=== PATIENT | female | born 1990 | race Caucasian/White ===

== ENCOUNTER 2018-09-19 06:13 | Inpatient (IN) ==
[2018-09-19 08:14] LABS: Baso % (Auto) 0.4 % (0.0-2.0); Eos # (Auto) 0.4 th/mm3 (0.0-0.4); Eos % (Auto) 3.4 % (0.0-4.0); Hematocrit 33.6 % (35.0-46.0); Lymph # (Auto) 2.4 th/mm3 (1.0-4.8); Lymph % (Auto) 23.3 % (9.0-44.0); Mean Corpuscular HGB Conc 35.7 % (32.0-36.0); Mean Corpuscular Volume 89.8 fL (80.0-100.0); Mean Platelet Volume 8.9 fL (7.0-11.0); Mono # (Auto) 0.7 th/mm3 (0.0-0.9); Mono % (Auto) 6.4 % (0.0-8.0); Neut # (Auto) 6.9 th/mm3 (1.8-7.7); Neut % (Auto) 66.5 % (16.0-70.0); Platelet Count 228 th/mm3 (150-450); Red Blood Count 3.74 mil/mm3 (4.00-5.30); Red Cell Distribution Width 13.8 % (11.6-17.2); White Blood Count 10.4 th/mm3 (4.0-11.0)
[2018-09-19 08:22] LABS: Amphetamine Urine With Conf Neg (Neg); Bacteria,Urine Few /hpf; Benzodiazepine Urine With Conf Neg (Neg); Bilirubin,Urine Negative (Negative); Clarity,Urine Hazy (Clear); Color,Urine Yellow (Yellw/Straw); Glucose,Urine (UA) Negative (Negative); Leukocyte Esterase,Urine Large (Negative); Mucus,Urine Few /lpf (Occasional); Nitrite,Urine Negative (Negative); Specific Gravity,Urine 1.006 (1.002-1.035); Squamous Epithelial Cell,Urine 7 /hpf (0-5)
[2018-09-19] MEDS ORDERED: Sod Chloride 0.9% Inj 1,000 ML IV.CONT PRN (08:32)
[2018-09-19] MEDS ORDERED: fentaNYL Citrate Inj 100 MCG/2 ML Ampul IV.PUSH PRN ×2 (08:32)
[2018-09-19] MEDS ORDERED: Naloxone Inj 0.4 MG/ML Vial IV.PUSH PRN ×2 (08:32→13:36)
[2018-09-19] MEDS ORDERED: Sodium Chlor 0.9% Inj 500 ML IV.SIG PRN (08:32)
[2018-09-19] MEDS ORDERED: Citric Acid/Sodium Citrate Liq 30 ML UDC PO SCH (08:45)
[2018-09-19] MEDS ORDERED: Oxytocin 30 Units/500ml Premix 30 UNITS/500 ML BAG IV.SIG ONE ×2 (09:00→13:36)
[2018-09-19] MEDS ORDERED: Oxytocin 30 Units/500ml Premix 30 UNITS/500 ML BAG IV.SIG PRN (11:00)
[2018-09-19] MEDS ORDERED: fentaNYL 2MCG-Bupiv 0.125% Epi 150 ML EPIDURAL ONE (11:04)
[2018-09-19] MEDS ORDERED: Lidocaine PF 1.5% Inj 20 ML Ampule ONE (11:07)
[2018-09-19] MEDS ORDERED: fentaNYL 2MCG-Bupiv 0.125% Epi 150 ML EPIDURAL PRN (12:36)
[2018-09-19] MEDS ORDERED: fentaNYL Citrate Inj 100 MCG/2 ML Ampul EPIDURAL ONE (12:36)
[2018-09-19] MEDS ORDERED: Zolpidem Tartrate 5 MG Tablet PO PRN (13:36)
[2018-09-19] MEDS ORDERED: Witch Hazel 50%/Glyderin 12.5% 40 Pad Jar RECTAL PRN (13:36)
[2018-09-19] MEDS ORDERED: Benzocaine 20% Top Spray 60 ML Can TOPICAL PRN (13:36)
[2018-09-19] MEDS ORDERED: Bisacodyl 10 MG Supp RECTAL PRN (13:36)
[2018-09-19] MEDS ORDERED: Oxytocin 30 Units/500ml Premix 30 UNITS/500 ML BAG IV.CONT PRN (13:36)
--- NOTE | 2018-09-19 13:46 | P.OBDELI ---
Weeks Gestation: 39 Active Labor Start Date: 09/19/18 Medical Induction of Labor: Yes Medical Induction Start Date: 09/19/18 Artificial Rupture of Membrane: Yes Anesthesia: Epidural Episiotomy: none Vaginal Delivery: Normal Presentation: Occiput anterior Nuchal Cord: None Delayed Cord Clamping (45 sec): Yes Placenta: Spontaneous delivery, Intact, 3 vessel cord Laceration: 1 deg Repair: Vicryl running : Female Infant Female A Delivery Date: 09/19/18 Weight: 3.43 kg score (1 min): 7 score (5 min): 9 Additional Information: Beautiful delivery of Jose. Small first degree left periurethral tear 2 cm. Repaired with 5-0 vicryl.
[2018-09-19] MEDS ORDERED: Measles/Mumps/Rubella Vaccine Inj 0.5 ML Vial SQ ONE (16:00)
[2018-09-19] MEDS ORDERED: Diphtheria/Tetanus/Pertussis Vaccine Inj 0.5 ML Syringe IM ONE (16:00)
[2018-09-19] MEDS: Acetaminophen 325 MG Tablet PO PRN ×2 (18:55→23:10)
[2018-09-20] MEDS: Senna/Docusate Sodium 8.6/50 MG Tablet PO SCH ×2 (04:23→21:34)
[2018-09-20] MEDS: Acetaminophen 325 MG Tablet PO PRN ×3 (04:25→21:33)
[2018-09-20] MEDS: Prenatal Vitamin Chewable Tablet CHEW SCH (08:29)
--- NOTE | 2018-09-20 15:09 | P.PNOB ---
Subjective Post day: 1 Interval history: Doing well Baby is doing well Pain is controlled Bleeding is good Tolerating diet Objective Vital Signs/I&O: Vital Signs 09/19/18 20:00 09/20/18 08:00 Temperature 97.7 F 97.6 F Pulse Rate 84 20 L Respiratory Rate 28 H 20 Blood Pressure 109/67 111/65 Intake & Output 09/19/18 09/20/18 09/20/18 18:59 06:59 18:59 Intake Total 1000 / 1000 Balance 1000 / 1000 Weight 92.533 kg Intake: IV 1000 / 1000 LR 1000 mL Inj 1,000 ML @ 125 1000 / 1000 mls/hr IV.CONT .Q8H [facility] Rx#: [id number] Result Diagrams: 09/19/18 07:00 Objective Remarks: GENERAL: Well-nourished, well-developed patient. CARDIOVASCULAR: Regular rate and rhythm without murmurs, gallops, or rubs. RESPIRATORY: Breath sounds equal bilaterally. No accessory muscle use. ABDOMEN/GI: Abdomen soft, non-tender. Fundus: Firm, non-tender at umbilicus. GENITOURINARY: Light to moderate bleeding. EXTREMITIES: No cyanosis or edema, non-tender, without signs of DVT. Medications and IVs: Active Medications Acetaminophen (Tylenol) 650 mg PO Q4H PRN PRN Reason: PAIN SCALE 1 TO 2 Last Admin: 09/20/18 08:28 Dose: 650 mg Al Hydroxide/Mg Hydroxide (Milk Of Magnesia Liq) 30 ml PO Q12H PRN PRN Reason: Mild Constipation Benzocaine (Americaine 20% [place]) 1 spray TOPICAL Q4H PRN PRN Reason: For Perineum Discomfort Last Admin: 09/19/18 18:55 Dose: 1 spray Bisacodyl (Dulcolax Supp) 10 mg RECTAL DAILY PRN PRN Reason: SEVERE CONSITIPATION Oxytocin (Pitocin 30 Units/Ns 500 Ml Premix) 30 units in 500 mls @ 100 mls/hr IV.CONT UNSCH PRN PRN Reason: Heavy bleeding Ibuprofen (Motrin) 800 mg PO Q8H PRN PRN Reason: For Cramping Lactulose (Lactulose Liq) 30 ml PO DAILY PRN PRN Reason: SEVERE CONSITIPATION Multivi/Iron Carb/Fe Sulf/FA/Prenat ( Vitamin Chewable) 1 tab CHEW DAILY [facility] Last Admin: 09/20/18 08:29 Dose: 1 tab Naloxone HCl (Narcan Inj) 0.1 mg IV.PUSH Q2M PRN PRN Reason: for opiate reversal Ondansetron HCl (Zofran Odt) 4 mg PO Q6H PRN PRN Reason: NAUSEA OR VOMITING Senna/Docusate Sodium (Elsy-Colace) 1 tab PO BID [facility] Last Admin: 09/20/18 04:23 Dose: Not Given Sennosides (Senokot) 17.2 mg PO Q12H PRN PRN Reason: Moderate Constipation Sodium Chloride (Ns Flush) 2 ml IV.FLUSH BID [facility] Last Admin: 09/20/18 04:22 Dose: 2 ml Sodium Chloride (Ns Flush) 2 ml IV.FLUSH PRN PRN PRN Reason: FLUSH AFTER USING IV ACCESS Witch Tisha/Glycerin (Tucks Pads) 1 applicatio RECTAL QID PRN PRN Reason: HEMORRHOIDS Last Admin: 09/19/18 18:55 Dose: 1 applicatio Zolpidem Tartrate (Ambien) 5 mg PO HS PRN PRN Reason: SLEEP Assessment and Plan - Plan PPD #1 Doing well Home tomorrow as baby has small heart mummer.
[2018-09-21 08:04] VITALS: BP 100/53; PULSE 63; RESP 16; TEMP 97.7
[2018-09-21] MEDS: Prenatal Vitamin Chewable Tablet CHEW SCH (08:42)
[2018-09-21] MEDS: Senna/Docusate Sodium 8.6/50 MG Tablet PO SCH (08:42)
[2018-09-21] MEDS: Acetaminophen 325 MG Tablet PO PRN (13:05)
== END 2018-09-21 14:28 | disposition home or self-care (01) ==
LOC: H2E 06:13 → H1EA 15:45
PROVIDERS: ADMIT Obstetrics & Gynecology; ATTEND Obstetrics & Gynecology